=== PATIENT | female | born 1970 | race Two or more races ===

== ENCOUNTER 2020-10-01 16:29 | Emergency (ER) | payer BC ==
[~2020-10-01] VITALS: Ht 157.5 cm; Wt 66.2 kg
[2020-10-01 16:38] VITALS: Ht 157.5 cm; Wt 66.2 kg
[2020-10-01 17:21] LABS: CALCIUM 9.3 mg/dL (8.5-10.1); CARBON DIOXIDE 32.4 mmol/L (21-32); CHLORIDE SERUM 103 mmol/L (98-107); CREATININE SERUM 0.6 mg/dL (0.6-1.0); GFR1 > 60 mL/min; GLUCOSE SERUM 102 mg/dL (74-106); POTASSIUM SERUM 3.5 mmol/L (3.5-5.1); SODIUM SERUM 140 mmol/L (136-145)
[2020-10-01 17:23] LABS: BASOPHIL % 0.8 % (0-2); PLATELET COUNT 237 x10^3mcL (130-400); RED CELL DISTRIBUTION WIDTH 12.6 % (11.5-14.5)
[2020-10-01 17:35] LABS: ALBUMIN 4.5 g/dL (3.4-5.0); ALKALINE PHOSPHATASE 124 U/L (46-116); ALT/SGPT 27 U/L (14-59); AST/SGOT 14 U/L (15-37); BILIRUBIN TOTAL 0.5 mg/dL (0.20-1.00)
[2020-10-01 17:38] LABS: TOTAL PROTEIN, SERUM 8.4 g/dL (6.4-8.2)
[2020-10-01 18:41] VITALS: BP 145/92
== END 2020-10-01 18:41 | disposition home or self-care (01) ==
LOC: ED 16:29
PROVIDERS: Emergency Medicine
DX: M54.5 Low back pain (principal); Z90.710 Acquired absence of both cervix and uterus